=== PATIENT | female | born 1980 | race American Indian/Alaskan Native ===

== ENCOUNTER 2021-05-11 16:43 | Emergency (ER) | payer MEDICAID, OTHER ==
[2021-05-11 16:54] VITALS: BP 127/89
--- NOTE | 2021-05-11 19:03 | Emergency Department Report ---
ED Female HPI - General Chief complaint: Urogenital-Female Stated complaint: SEVERE VAGINAL DISCOMFORT Time Seen by Provider: 05/11/21 19:01 Source: patient Mode of arrival: Ambulatory Limitations: No Limitations - History of Present Illness Initial comments: 41-year-old female presents to the ER today concerned that she may have a bacterial vaginosis infection. Patient states that for the past couple days she has been having vaginal itching and a odor. She also reports burning to the vaginal area mainly when she washes with soap otherwise she is not having any dysuria, urinary frequency, hematuria or any other UTI symptoms. She states that she has her typical white vaginal discharge. She denies any abdominal pelvic pain or lower back pain. She does admit that she has a new sexual partner and has been having unprotected intercourse, but she states that she is not concerned for STDs at this time. She does have an OPERATIONS COORDINATOR appointment next Saturday but she states that she felt like her symptoms were getting a little worse and wanted to come having it checked out. Her last menstrual cycle was April 20, 2021. She is not currently on any control. MD Complaint: other (Vaginal itching, and odor) -: Gradual, days(s) - Related Data Previous Rx's Medication Instructions Recorded Last Taken Type HYDROcodone/APAP 5-325 [Cerulean 1 each PO Q6HR PRN #16 tablet 05/02/16 Unknown Rx 5/325] Fluconazole [Diflucan TAB] 200 mg PO QDAY #2 tablet 05/11/21 Unknown Rx metroNIDAZOLE [Flagyl] 500 mg PO Q12HR #14 tab 05/11/21 Unknown Rx Allergies Allergy/AdvReac Type Severity Reaction Status Date / Time shellfish derived AdvReac Swelling Verified 05/11/21 16:50 ED Review of Systems ROS: Stated complaint: SEVERE VAGINAL DISCOMFORT Other details as noted in HPI Comment: All other systems reviewed and negative Constitutional: denies: chills, fever Eyes: denies: eye pain, eye discharge, vision change ENT: denies: ear pain, throat pain, dental pain, hearing loss, epistaxis, congestion Respiratory: denies: cough, orthopnea, shortness of breath, SOB with exertion, SOB at rest, wheezing Gastrointestinal: denies: abdominal pain, nausea, vomiting, diarrhea, constipation, hematemesis, hematochezia Genitourinary: discharge, other (Vaginal itching odor and irritation). denies: urgency, dysuria, frequency, hematuria, abnormal menses, dyspareunia Musculoskeletal: denies: back pain, joint swelling, arthralgia, myalgia Skin: pruritus. denies: rash, lesions, change in color, change in hair/nails Neurological: denies: headache, weakness, numbness, paresthesias, confusion, abnormal gait, vertigo Psychiatric: denies: anxiety, depression, auditory hallucinations, visual hallucinations, homicidal thoughts, suicidal thoughts Hematological/Lymphatic: denies: easy bleeding, easy bruising, swollen glands ED Past Medical Hx - Past Medical History Additional medical history: implanon - Surgical History Additional Surgical History: BREAST SURGERY - Social History Smoking Status: Never Smoker Substance Use Type: None - Medications Home Medications: Home Medications Medication Instructions Recorded Confirmed Last Taken Type HYDROcodone/APAP 5-325 [Cerulean 1 each PO Q6HR PRN #16 tablet 05/02/16 Unknown Rx 5/325] Fluconazole [Diflucan TAB] 200 mg PO QDAY #2 tablet 05/11/21 Unknown Rx metroNIDAZOLE [Flagyl] 500 mg PO Q12HR #14 tab 05/11/21 Unknown Rx ED Physical Exam - General Limitations: No Limitations General appearance: alert, in no apparent distress - Head Head exam: Present: atraumatic, normocephalic, normal inspection - Eye Eye exam: Present: normal appearance, PERRL, EOMI Pupils: Present: normal accommodation - Neck Neck exam: Present: normal inspection, full ROM - Respiratory Respiratory exam: Present: normal lung sounds bilaterally. Absent: respiratory distress, wheezes, rales, rhonchi, stridor - Cardiovascular Cardiovascular Exam: Present: regular rate, normal rhythm, normal heart sounds - GI/Abdominal GI/Abdominal exam: Present: soft. Absent: distended, tenderness, guarding, rebound - Neurological Exam Neurological exam: Present: alert, oriented X3, CN II-XII intact, normal gait - Psychiatric Psychiatric exam: Present: normal affect, normal mood - Skin Skin exam: Present: intact ED Course Vital Signs 05/11/21 16:50 Temperature 99.5 F Pulse Rate 89 Respiratory 20 Rate Blood Pressure 127/89 O2 Sat by Pulse 99 Oximetry ED Medical Decision Making - Medical Decision Making Patient will be treated prophylactically for bacterial vaginosis since she has had the before and she states that it feels similar to previous bacterial vaginosis infection. She also be given a prescription for Diflucan just in case she may have also yeast infection. Did offer to treat prophylactically for gonorrhea and chlamydia but she opted to wait and see, and if she is still having symptoms by next Saturday she will follow-up with her OPERATIONS COORDINATOR as scheduled next Saturday. Patient currently is well-appearing, not toxic and not in any acute distress. She is not having any pelvic or abdominal pain. She is afebrile with normal vital signs. Discussed instructions and treatment plan with patient. Patient stable at time of discharge Critical care attestation.: If time is entered above; I have spent that time in minutes in the direct care of this critically ill patient, excluding procedure time. ED Disposition Clinical Impression: Vaginitis Disposition: TO HOME OR SELFCARE Is pt being admited?: No Does the pt Need Aspirin: No Condition: Stable Instructions: Vaginitis, [id number], Bacterial Vaginosis, [id number] Additional Instructions: I recommend that you take the Flagyl as prescribed. Recommend that you take the Diflucan 1 now and 1 after you finish taking the Flagyl. Keep your appointment with OPERATIONS COORDINATOR for next Saturday. Return to the ER if your symptoms changes or worsens in any way. Prescriptions: Fluconazole [Diflucan TAB] 200 mg PO QDAY #2 tablet metroNIDAZOLE [Flagyl] 500 mg PO Q12HR #14 tab Referrals: PRIMARY CARE, [Primary Care Provider] - 3-5 Days Time of Disposition: 19:08
== END 2021-05-11 19:36 | disposition home or self-care (01) ==
LOC: ED 16:43
DX: N76.0 Acute vaginitis (principal); Z98.890 Other specified postprocedural states; Z91.013 Allergy to seafood
CPT/HCPCS: 99282

== ENCOUNTER 2021-06-29 17:21 | Emergency (ER) | payer OTHER ==
[2021-06-29 17:37] VITALS: BP 109/75
--- NOTE | 2021-06-29 18:12 | Emergency Department Report ---
ED Fall HPI - General Chief Complaint: Fall Stated Complaint: FELL ON CONCRETE BACK, NECK ,LEG Time Seen by Provider: 06/29/21 17:50 Source: patient Mode of arrival: Ambulatory - History of Present Illness Initial Comments: Patient is a 41-year-old female presents emergency room complaints of a fall that occurred earlier today. Patient states that she slipped and fell on the concrete. She is complaining of neck pain and low back pain. She denies any loss of consciousness, hitting her head, vomiting, vision changes, numbness, weakness, bowel or bladder incontinence. She is ambulatory. She denies any abrasions or lacerations. No past medical history. Allergy to shellfish. She states her last menstrual cycle was in May. - Related Data Previous Rx's Medication Instructions Recorded Last Taken Type HYDROcodone/APAP 5-325 [Slater 1 each PO Q6HR PRN #16 tablet 05/02/16 Unknown Rx 5/325] Fluconazole [Diflucan TAB] 200 mg PO QDAY #2 tablet 05/11/21 Unknown Rx metroNIDAZOLE [Flagyl] 500 mg PO Q12HR #14 tab 05/11/21 Unknown Rx Naproxen 375 mg PO BID PRN #14 tablet 06/29/21 Unknown Rx methOCARBAMOL [Robaxin TAB] 500 mg PO BID PRN #14 tab 06/29/21 Unknown Rx Allergies Allergy/AdvReac Type Severity Reaction Status Date / Time shellfish derived AdvReac Swelling Verified 06/29/21 17:31 ED Review of Systems ROS: Stated complaint: FELL ON CONCRETE BACK, NECK ,LEG Other details as noted in HPI Comment: All other systems reviewed and negative ED Past Medical Hx - Past Medical History Previous Medical History?: No Additional medical history: implanon - Surgical History Additional Surgical History: BREAST SURGERY/ D&C - Social History Smoking Status: Never Smoker Substance Use Type: None - Medications Home Medications: Home Medications Medication Instructions Recorded Confirmed Last Taken Type HYDROcodone/APAP 5-325 [Slater 1 each PO Q6HR PRN #16 tablet 05/02/16 Unknown Rx 5/325] Fluconazole [Diflucan TAB] 200 mg PO QDAY #2 tablet 05/11/21 Unknown Rx metroNIDAZOLE [Flagyl] 500 mg PO Q12HR #14 tab 05/11/21 Unknown Rx Naproxen 375 mg PO BID PRN #14 tablet 06/29/21 Unknown Rx methOCARBAMOL [Robaxin TAB] 500 mg PO BID PRN #14 tab 06/29/21 Unknown Rx ED Physical Exam - General Limitations: No Limitations General appearance: alert, in no apparent distress - Head Head exam: Present: atraumatic, normocephalic - Eye Eye exam: Present: normal appearance - ENT ENT exam: Present: mucous membranes moist - Neck Neck exam: Present: normal inspection, tenderness (mild bilateral C-spine paraspinal muscular ttp, no midline C-spine ttp, no step offs, no deformities, no edema, no ecchymosis ), full ROM. Absent: meningismus - Respiratory Respiratory exam: Present: normal lung sounds bilaterally. Absent: respiratory distress, wheezes, rales, rhonchi, stridor, chest wall tenderness, accessory muscle use, decreased breath sounds, prolonged expiratory - Cardiovascular Cardiovascular Exam: Present: regular rate, normal rhythm, normal heart sounds. Absent: systolic murmur, diastolic murmur, rubs, gallop - Back Exam Back exam: Present: normal inspection, full ROM, paraspinal tenderness (mild bilateral lumbar paraspinal muscular ttp, no midline C-spine, T-spine or L-spine ttp, no step offs, no deformities, no edema, no ecchymosis). Absent: vertebral tenderness - Neurological Exam Neurological exam: Present: alert, oriented X3, CN II-XII intact, normal gait. Absent: motor sensory deficit - Psychiatric Psychiatric exam: Present: normal affect, normal mood - Skin Skin exam: Present: warm, dry, intact ED Course Vital Signs 06/29/21 17:36 Temperature 97.0 F L Pulse Rate 98 H Respiratory 20 Rate Blood Pressure 109/75 O2 Sat by Pulse 98 Oximetry ED Medical Decision Making - Radiology Data Radiology results: report reviewed Ordering Physician: PRUDENCE BENTLEY Date of Service: 06/29/21 Procedure(s): XR spine lumbosacral 2-3V Accession Number(s): [id number] cc: PRUDENCE BENTLEY Fluoro Time In Minutes: LUMBOSACRAL SPINE 3 VIEWS INDICATION / CLINICAL INFORMATION: Fall with low back pain. COMPARISON: None available. FINDINGS: BONES / JOINT(S): There is mild thoracolumbar levoscoliosis. The vertebral body heights and disc spaces are well-maintained. The pedicles are intact and the SI joints are normal. There is no evidence of acute fracture or subluxation. SOFT TISSUES: No significant abnormality. ADDITIONAL FINDINGS: None. IMPRESSION: No acute abnormality. Signer Name: Holland Eaton MD Signed: 06/29/2021 7:38 PM Workstation Name: [id number] Transcribed By: RT Dictated By: Holland Eaton MD Electronically Authenticated By: Holland Eaton MD Signed Date/Time: 06/29/211937 DD/ 36 TD/TT: Print Ordering Physician: PRUDENCE BENTLEY Date of Service: 06/29/21 Procedure(s): XR spine cervical 2-3V Accession Number(s): [id number] cc: PRUDENCE BENTLEY Fluoro Time In Minutes: CERVICAL SPINE 3 VIEWS INDICATION / CLINICAL INFORMATION: Fall with neck pain. COMPARISON: None available. FINDINGS: BONES / JOINT(S): There is mild anterior spurring at C2-3. The other disc spaces are normal. There is no evidence of acute fracture or subluxation. SOFT TISSUES: The prevertebral soft tissues are normal. ADDITIONAL FINDINGS: The lung apices are clear. IMPRESSION: No acute abnormality. Signer Name: Holland Eaton MD Signed: 06/29/2021 7:37 PM Workstation Name: [id number] Transcribed By: RT Dictated By: Holland Eaton MD Electronically Authenticated By: Holland Eaton MD Signed Date/Time: 06/29/211936 DD/ 35 TD/TT: - Medical Decision Making Patient is a 41-year-old female presents emergency room complaints of a fall that occurred earlier today. Patient states that she slipped and fell on the concrete. She is complaining of neck pain and low back pain. She denies any loss of consciousness, hitting her head, vomiting, vision changes, numbness, weakness, bowel or bladder incontinence. She is ambulatory. She denies any abrasions or lacerations. No past medical history. Allergy to shellfish. She states her last menstrual cycle was in May. Vitals are stable. On exam: mild bilateral C-spine paraspinal muscular ttp, no midline C-spine ttp, no step offs, no deformities, no edema, no ecchymosis, mild bilateral lumbar paraspinal muscular ttp, no midline C-spine, T-spine or L-spine ttp, no step offs, no deformities, no edema, no ecchymosis. X-ray lumbar spine:IMPRESSION: No acute abnormality. X-ray cervical spine: IMPRESSION: No acute abnormality. Discussed all results with patient answered questions. Discussed the importance of outpatient primary care follow-up and strict return precautions. Patient given prescription for medication. Advised patient Please take medication as prescribed as needed. May use ice pack, heating pad, rest, epsom salt bath. Follow-up with a primary care doctor for reexamination. Return to emergency room for any new or worsening symptoms. Critical care attestation.: If time is entered above; I have spent that time in minutes in the direct care of this critically ill patient, excluding procedure time. ED Disposition Clinical Impression: Neck pain Fall Qualifiers: Encounter type: initial encounter Qualified Code(s): W19.XXXA - Unspecified fall, initial encounter Back pain Qualifiers: Back pain location: low back pain Chronicity: acute Back pain laterality: bilateral Sciatica presence: without sciatica Qualified Code(s): M54.5 - Low back pain Disposition: 01 HOME / SELF CARE / HOMELESS Is pt being admited?: No Does the pt Need Aspirin: No Condition: Stable Instructions: Muscle Strain, [id number] Additional Instructions: Please take medication as prescribed as needed. May use ice pack, heating pad, rest, epsom salt bath. Follow-up with a primary care doctor for reexamination. Return to emergency room for any new or worsening symptoms. Prescriptions: Naproxen 375 mg PO BID PRN #14 tablet PRN Reason: pain methOCARBAMOL [Robaxin TAB] 500 mg PO BID PRN #14 tab PRN Reason: pain Referrals: PEGGY TELLEZ MD [Staff Physician] - 3-5 Days [facility] [Provider Group] - 3-5 Days JUAREZ MCKEON MD [Staff Physician] - 3-5 Days Time of Disposition: 19:45 Print Language: CAMBODIAN
[2021-06-29 18:58] LABS: HCG Qualitative,Urine Negative (Negative)
--- NOTE | 2021-06-29 19:41 | XRay Report ---
CERVICAL SPINE 3 VIEWS INDICATION / CLINICAL INFORMATION: Fall with neck pain. COMPARISON: None available. FINDINGS: BONES / JOINT(S): There is mild anterior spurring at C2-3. The other disc spaces are normal. There is no evidence of acute fracture or subluxation. SOFT TISSUES: The prevertebral soft tissues are normal. ADDITIONAL FINDINGS: The lung apices are clear. IMPRESSION: No acute abnormality. Signer Name: Holland Eaton MD Signed: 06/29/2021 7:37 PM Workstation Name: [id number]
--- NOTE | 2021-06-29 19:42 | XRay Report ---
LUMBOSACRAL SPINE 3 VIEWS INDICATION / CLINICAL INFORMATION: Fall with low back pain. COMPARISON: None available. FINDINGS: BONES / JOINT(S): There is mild thoracolumbar levoscoliosis. The vertebral body heights and disc spac es are well-maintained. The pedicles are intact and the SI joints are normal. There is no evidence of acute fracture or subluxation. SOFT TISSUES: No significant abnormality. ADDITIONAL FINDINGS: None. IMPRESSION: No acute abnormality. Signer Name: Holland Eaton MD Signed: 06/29/2021 7:38 PM Workstation Name: [id number]
== END 2021-06-29 20:11 | disposition home or self-care (01) ==
LOC: ED 17:21
DX: M54.5 Low back pain (principal); M54.2 Cervicalgia; Z98.890 Other specified postprocedural states; Z91.013 Allergy to seafood; W19.XXXA Unspecified fall, initial encounter; Y93.89 Activity, other specified; Y92.89 Other specified places as the place of occurrence of the external cause; Y99.8 Other external cause status
CPT/HCPCS: 72040; 72100; 81025; 99283